=== PATIENT | male | born 2000 | race Two or more races ===

== ENCOUNTER → 2021-11-03 11:37 | Outpatient (BNVA) | payer OTHER, SELFPAY | PROVIDERS: Visit Provider Internal Medicine | DX: Z77.21 Contact with and (suspected) exposure to potentially hazardous body fluids (principal); Z23 Encounter for immunization | CPT/HCPCS: 36415; 84450; 84460; 86706; 86803; 87389; 90715; 99203 ==

== ENCOUNTER → 2022-12-19 15:19 | Outpatient (BNVA) | payer OTHER, SELFPAY | PROVIDERS: Visit Provider Physician Assistant Medical | DX: Z77.21 Contact with and (suspected) exposure to potentially hazardous body fluids (principal) | CPT/HCPCS: 99203 ==